=== PATIENT | male | born 1960 | race Caucasian/White ===

== ENCOUNTER 2018-03-11 13:50 | Emergency (ER) | payer OTHER ==
[2018-03-11] MEDS: IBUPROFEN 600 MG TAB PO (14:46)
== END 2018-03-11 16:20 | disposition home or self-care (01) ==
LOC: FTE 13:50
DX: M25.521 Pain in right elbow (principal); R51 Headache; R42 Dizziness and giddiness
CPT/HCPCS: 70450; 72125; 73080-RT; 99285-25